=== PATIENT | male | born 1990 | race Caucasian/White ===

== ENCOUNTER 2022-06-20 02:42 | Emergency (ER) | payer MEDICAID ==
[~2022-06-20] VITALS: Ht 188 cm; Wt 97.5 kg
--- NOTE | 2022-06-20 03:05 | NUR ---
BIBSELF FROM HOME C/O SORE THROAT, H/A CONGESTION, CHILLS X2 DAYS. PATIENT IS AAOX4. AMBULATORY.ABLE TO MAKE NEEDS KNOWN. PLACED COMFORTABLY IN BED. VITALS CHECKED.
--- NOTE | 2022-06-20 03:05 | NUR ---
DR BARBIE HOUSER AT PT'S BEDSIDE FOR EVAL
--- NOTE | 2022-06-20 03:14 | NUR ---
STREP SWAB DONE AND SENT TO LAB
[2022-06-20] MEDS ORDERED: DEXAMETHASONE SOD PHOSPHATE 10 MG/ML VIAL ONE (03:16)
[2022-06-20] MEDS ORDERED: KETOROLAC TROMETHAMINE INJ 30 MG/ML VIAL ONE (03:17)
[2022-06-20] MEDS ORDERED: LIDOCAINE VISCOUS 2% UD 15 ML UDC ONE (03:17)
[2022-06-20] MEDS ORDERED: AMOX-430 PO ×2 (03:21→03:24)
[2022-06-20] MEDS ORDERED: IBUP-1955 PO ×2 (03:21→03:24)
[2022-06-20] MEDS ORDERED: DEXA4TAB PO ×2 (03:21→03:24)
[2022-06-20] MEDS ORDERED: DEXAMETHASONE SOD PHOSPHATE 10 MG/ML VIAL IM ONE (03:30)
[2022-06-20] MEDS ORDERED: LIDOCAINE VISCOUS 2% UD 15 ML UDC MM ONE (03:30)
[2022-06-20] MEDS ORDERED: KETOROLAC TROMETHAMINE INJ 30 MG/ML VIAL IM ONE (03:30)
--- NOTE | 2022-06-20 03:33 | NUR ---
Patient discharged to home in stable condition. Written and verbal after care instructions given. Patient verbalizes understanding of instruction.
[2022-06-20 03:36] VITALS: BP 127/73
== END 2022-06-20 03:36 | disposition home or self-care (01) ==
LOC: ER 02:46
DX: J02.9 Acute pharyngitis, unspecified (principal)
CPT/HCPCS: 99284; 96372 ×2; 87880; J1100; J1885; 86403-TC